=== PATIENT | male | born 1950 | race Caucasian/White ===

== ENCOUNTER 2016-09-25 12:27 | Inpatient (IN) | payer OTHER ==
[~2016-09-25] VITALS: Ht 177.8 cm; Wt 74.7 kg
[~2016-09-25 12:27] MED LIST: FINA5TAB PO; TAMS-14 PO
[2016-09-25] MEDS ORDERED: ASPIRIN 325 MG TAB PO STA (14:09)
[2016-09-25 14:34] LABS: BASOPHILS % 0.3 % (0.0-2.0); EOSINOPHILS # 0.1 10^3/ul (0.0-0.5); EOSINOPHILS % 0.7 % (0.0-7.0); HEMATOCRIT 49.6 % (42.0-52.0); HEMOGLOBIN 16.3 g/dl (14.0-18.0); LYMPHOCYTES # 2.4 10^3/ul (0.8-2.9); LYMPHOCYTES % 19.9 % (15.0-51.0); MEAN CORPUSCULAR HGB CONC 32.9 g/dl (32.0-37.0); MEAN CORPUSCULAR VOLUME 94.4 fl (82.0-101.0); MEAN PLATELET VOLUME 8.6 fl (7.4-10.4); MONOCYTE # 0.8 10^3/ul (0.3-0.9); MONOCYTES % 7.1 % (0.0-11.0); NEUTROPHIL # 8.6 10^3/ul (1.6-7.5); PLATELET COUNT 184 10^3/UL (140-440); RED BLOOD COUNT 5.26 10^6/ul (4.70-6.10); RED CELL DISTRIBUTION WIDTH 13.7 % (11.5-14.5); UNCORRECTED WBC 11.9 10^3/ul (4.8-10.8); WHITE BLOOD COUNT 11.9 10^3/ul (4.8-10.8)
[2016-09-25 14:42] LABS: POTASSIUM 4.5 mmol/L (3.5-5.1)
[2016-09-25 14:44] LABS: INR 0.92; PARTIAL THROMBOPLASTIN TIME 35.7 Sec (25.0-35.0); PROTIME 12.4 Sec (12.2-14.2)
[2016-09-25 14:45] LABS: CREATININE 0.97 mg/dl (0.61-1.24)
[2016-09-25 14:46] LABS: CALCIUM 10.5 mg/dl (8.4-10.2)
[2016-09-25 14:59] LABS: CONDITION 1
[2016-09-25 15:03] LABS: TROPONIN-I 12.5 ng/ml (0.00-0.12)
[2016-09-25] MEDS ORDERED: HEPARIN 1000 UNITS/ML 10 ML INJ IV STA (15:16)
[2016-09-25] MEDS ORDERED: HEPARIN 25000 UNITS/250 ML 250 ML IV STA (15:16)
[2016-09-25] MEDS ORDERED: SOD CHLORIDE 0.9% 1,000 ML IV ONE (15:30)
--- NOTE | 2016-09-25 15:58 | RADRPT ---
PROCEDURE: XR Chest. CLINICAL INDICATION: Chest pain. TECHNIQUE: Single frontal view of the chest was obtained. COMPARISON: 04/30/2015. FINDINGS: Cardiomediastinal silhouette appears normal Pulmonary vasculature appears normal. Lung landeros appear clear. No nodules identified. No pneumothorax. Costophrenic angles are well defined. The osseous elements appear intact. IMPRESSION: 1. No evidence for active cardiopulmonary disease. RPTAT: AACC Saeed Shane Physician Date Time Electronically viewed and signed by Saeed Shane Physician on 09/25/2016 15:58 /
[2016-09-25] MEDS ORDERED: ETOMIDATE 20 MG INJ IV ONE (16:00)
[2016-09-25] MEDS ORDERED: ONDANSETRON 4 MG INJ IV PRN ×2 (16:30→17:30)
[2016-09-25] MEDS ORDERED: ACETAMINOPHEN 325 MG TAB PO PRN ×2 (16:30→17:30)
[2016-09-25] MEDS ORDERED: NITROGLYCERIN (SL) 0.4 MG TAB SL PRN (17:30)
[2016-09-25] MEDS ORDERED: DOCUSATE SODIUM 100 MG CAP PO PRN (17:30)
[2016-09-25] MEDS ORDERED: ALBUTEROL/IPRATROPIUM (NEB) 3 ML AMP HHN PRN (17:30)
[2016-09-25] MEDS ORDERED: NA PHOSPHATE/BIPHOS 133 ML ENEMA PR PRN (17:30)
[2016-09-25] MEDS ORDERED: NACL 0.9% 3 ML SYG IV SCH (17:30)
[2016-09-25] MEDS ORDERED: hydrALAzine 20 MG INJ IV PRN (17:30)
[2016-09-25] MEDS ORDERED: MAGNESIUM HYDROXIDE 30ML CUP PO PRN (17:30)
[2016-09-25] MEDS: SOD CHLORIDE 0.45% 1,000 ML IV SCH (17:58)
[2016-09-25 17:59] VITALS: PULSE 80
[2016-09-25 18:39] VITALS: Ht 177.8 cm; Wt 74.7 kg
[2016-09-25] MEDS ORDERED: CLOPIDOGREL 75 MG TAB PO ONE (19:00)
[2016-09-25 19:10] LABS: INR 1.05; PROTIME 13.7 Sec (12.2-14.2); PT RATIO 1.1
--- NOTE | 2016-09-25 19:13 | CONS ---
DATE OF ADMISSION: 09/25/2016 DATE OF CONSULTATION: 09/25/2016 TYPE OF CONSULTATION: Cardiology. REFERRING PHYSICIAN: Dr. Beckham REASON FOR CONSULTATION: Abnormal troponin and myocardial infarction. CHIEF COMPLAINT: Chest pain. HISTORY OF PRESENT ILLNESS: Thank you for this referral on this patient who is a good historian. T his is a 66-year-old gentleman with a history of dyslipidemia apparently has not been taking his Lip itor regularly, history of BPH who came to emergency room with complaint of chest pain. The patient stated that last night around 2:00 in the morning he was awake, he had severe chest pain anteriorly , pressure-like going down to his jaws bilaterally. It lasted at least 15 to 20 minutes. The pain resolved spontaneously. He has had on and off chest pain since then. Because of his family issues and personal issues, he did not come to the hospital until this afternoon. Initial troponin was le vated at 12. We were kindly asked to evaluate and treat. At this time, patient is completely chest pain-free. PAST MEDICAL HISTORY: History of dyslipidemia, history of BPH. MEDICATIONS AT HOME: Proscar. SOCIAL HISTORY: The patient uses "miracle marijuana." FAMILY HISTORY: No reported coronary artery disease. ALLERGIES: NO REPORTED ALLERGIES. REVIEW OF SYSTEMS: He denied all other except for above-mentioned. PHYSICAL EXAMINATION: VITAL SIGNS: Temperature 98.2, heart rate of 80, blood pressure 114/90, respiration rate of 18, sat urating 99% on room air. HEENT: Normocephalic, atraumatic, no acute distress. Pupils equal and round. CARDIOVASCULAR: Regular rate and rhythm, systolic murmur. PULMONARY: With no wheezes or rales. GASTROINTESTINAL: Soft, nontender. EXTREMITIES: With no significant lower extremity edema. NEUROLOGIC: Awake, alert, oriented x3. PSYCHIATRIC: Appears to be calm and pleasant. DIAGNOSTIC DATA: EKG was personally reviewed, showed normal sinus rhythm, inferior infarct, age und etermined. LABORATORY: Troponin is 12.5. Sodium 140, potassium 4.5, BUN of 24, creatinine 0.97, glucose of 84 . WBC of 11.9, hemoglobin , platelet 184. Chest x-ray read by radiologist shows no acute cardiopulmonary disease. ASSESSMENT AND PLAN: 1. [id number] myocardial infarction. 2. Abnormal EKG secondary to above. 3. Dyslipidemia. 4. Benign prostatic hypertrophy. RECOMMENDATIONS: Will start the patient on aspirin, Plavix, heparin drip. Currently, chest pain-fr ee. Will obtain serial cardiac enzymes, lipid panel, start him on statin, start him on beta aria . Plan for left heart catheterization, coronary angioplasty with possible percutaneous intervention tomorrow. Risks and alternatives were discussed with the patient in detail. This included infecti on, vascular complication, bleeding complication, [place], stroke, arrhythmia, , renal failure, etc. , discussed with him. He consented to the procedure. Dictated By: SHELLY RUIZ/DORENE Conf#: [id number] DID#: [id number]
[2016-09-25 19:20] LABS: PARTIAL THROMBOPLASTIN TIME 80.7 Sec (25.0-35.0)
[2016-09-25] MEDS ORDERED: HEPARIN 1000 UNITS/ML 10 ML INJ IV PRN (19:30)
[2016-09-25 19:33] LABS: TROPONIN-I 13.9 ng/ml (0.00-0.12)
[2016-09-25] MEDS ORDERED: HEPARIN 25000 UNITS/D5W 250 ML IV SCH (20:00)
[2016-09-25] MEDS: HEPARIN 25000 UNITS/D5W 250 ML IV SCH (20:13)
[2016-09-25 20:30] VITALS: PULSE 76
--- NOTE | 2016-09-25 20:32 | HP ---
DATE OF ADMISSION: 09/25/2016 CHIEF COMPLAINT: Chest pain, shortness of breath. HISTORY OF PRESENT ILLNESS: A 66-year-old male, with no significant past medical history other than recent stress the last 2 weeks, who has had substernal chest pain that began around 1 a.m. today. It radiated to the jaw and eventually to the left arm. He also had some shortness of breath symptom s, as well, but denied any headaches, dizziness or loss of consciousness. No upper, no lower jaw bl eeding. No fevers or chills. No diarrhea. No constipation. No abdominal pain. No nausea. No vo miting. No sweating. Denies any prior history of any stroke or heart attack. He tried to take asp irin at home, which did not relieve his symptoms, so he became concerned and came to the ER. When waqra noyola came in today, he was found with elevated troponin of 4.4, signs of non-ST elevation MT; patient w as given heparin in the ER and admitted now to the telemetry floor. PAST MEDICAL HISTORY: As stated above. ALLERGIES: NO KNOWN DRUG ALLERGIES. HOME MEDICATIONS: Proscar 5 mg daily. PAST SURGICAL HISTORY: He has had 2 inguinal hernia repairs. SOCIAL HISTORY: Patient smokes weed occasionally; smokes 3 to 4 cigars every year. No cigarette sm oking. Occasional alcohol use. FAMILY HISTORY: Mother had high cholesterol. Father had high cholesterol. PHYSICAL EXAMINATION VITAL SIGNS: Today: T-max 98.2, pulse 78, respirations 18, blood pressure ____, sating 99% room ai r. GENERAL: The patient is lying in bed, answering questions appropriately, slightly anxious, but othe rwise, in no acute distress, alert. HEENT: Pupils equal, round, react to light. Extraocular muscles intact. NECK: Supple; no thyromegaly. LUNGS: Clear to auscultation bilaterally. CARDIOVASCULAR: S1, S2 heard. No rubs or gallops. ABDOMEN: Soft, nontender, nondistended. Normal bowel sounds. No rebound or guarding. MUSCULOSKELETAL: No lower extremity edema bilaterally. NEUROLOGIC: No focal deficits. LABORATORIES: WBC 11.97, the rest of the CBC is normal. Sodium 140, potassium 4.5, chloride 98, CO 2 30, BUN 24, creatinine 0.9, glucose 84. Troponin is 12.5. BNP is 1,330. Coags are normal. CHEST X-RAY: No evidence of any active cardiopulmonary disease. ASSESSMENT AND PLAN A 66-year-old male with chest pain and shortness of breath, signs of non-ST elevation myocardial inf arction and leukocytosis: 1. Chest pain. Again, patient does is having a non-ST elevation myocardial infarction as the sourc e of his chest pain. Admit him to telemetry floor. Get cardiology consultation. Patient most like ly will get left heart catheterization tomorrow. In the meantime, morphine, oxygen, nitroglycerin a nd oxygen. Consider JOSE inhibitor, beta aria. He is going to get Plavix, as well. Check a TSH, A1c, lipid panel. Trend his troponins, as well. Consider IV fluids. Continue high-dose Lipitor. 2. Possible prostate issues. Continue Proscar. 3. Gastrointestinal prophylaxis, Pepcid. 4. Deep venous thrombosis prophylaxis. He is going to be on a heparin drip. Dictated By: AMRIK GIBBONS Conf#: [id number] DID#: [id number]
[2016-09-25] MEDS: FAMOTIDINE 20 MG INJ IV SCH (20:36)
[2016-09-25] MEDS ORDERED: ENOXAPARIN 100 MG/ML SYG SC SCH (21:00)
[2016-09-25] MEDS: ATORVASTATIN 80 MG TAB PO SCH (21:31)
[2016-09-25] MEDS: METOPROLOL 25 MG TAB PO SCH (21:31)
[2016-09-25 23:28] LABS: ADD UMIC NO; URINE BILIRUBIN (Dip) NEGATIVE (NEGATIVE); URINE BLOOD (Dip) NEGATIVE (NEGATIVE); URINE COLOR LT. YELLOW (YELLOW); URINE GLUCOSE (Dip) NEGATIVE (NEGATIVE); URINE KETONES (Dip) TRACE (NEGATIVE); URINE LEUKOCYTE ESTERASE (Dip) NEGATIVE (NEGATIVE); URINE NITRITE (Dip) NEGATIVE (NEGATIVE); URINE TOTAL PROTEIN (Dip) NEGATIVE (NEGATIVE); URINE UROBILINOGEN (Dip) 0.2 E.U./dL (0.1-1.0)
[2016-09-25 23:41] LABS: TROPONIN-I 10.7 ng/ml (0.00-0.12)
[2016-09-26] VITALS (29 sets, daily range): BP systolic 95–143; BP diastolic 62–97; PULSE 54–77; RESP 9–20
--- NOTE | 2016-09-26 00:21 | ERA ---
ER Documentation Chief Complaint Date/Time DATE: 09/26/16 TIME: 00:17 Chief Complaint STRONG PRESSURE LIKE PAIN @ LEFT CHEST AREA RADIATES TO ARMS AND JAW HPI This 66-year-old male presented with mild central chest pain described as a pressure that does not radiate. Pain is subsided significantly when he first developed last night. He had some shortness of breath accompanying at the time. Nothing makes the pain better or worse. He denies nausea vomiting. States it is otherwise healthy denies medical problems. ROS All systems reviewed and are negative except as per history of present illness. Medications Home Meds Reported Medications Finasteride* (Proscar*) 5 Mg Tablet, 5 MG PO DAILY, TAB 04/30/15 Discontinued Reported Medications Tamsulosin Hcl* (Flomax*) 0.4 Mg Cap.er.24h, 0.4 MG PO DAILY, CAP 04/30/15 Allergies Allergies: Coded Allergies: No Known Allergy (Unverified , 04/30/15) PMhx/Soc History of Surgery: Yes (Hernia repair) Anesthesia Reaction: No Hx Neurological Disorder: No Hx Respiratory Disorders: No Hx Cardiac Disorders: No Hx Psychiatric Problems: Yes (Depression) Hx Miscellaneous Medical Probl: No Hx Alcohol Use: Yes (4-5 glasses of wine a week) Hx Substance Use: No Hx Tobacco Use: No Smoking Status: Never smoker Physical Exam Vitals Vital Signs Date Time Temp Pulse Resp B/P Pulse Ox O2 Delivery O2 Flow Rate FiO2 09/25/16 14:33 78 18 114/96 99 Room Air 09/25/16 12:38 98.2 82 19 125/87 97 Physical Exam Const: [] No distress Head: Atraumatic Eyes: Normal Conjunctiva ENT: Normal External Ears, Nose and Mouth. Neck: Full range of motion..~ No meningismus. Resp: Clear to auscultation bilaterally Cardio: Regular rate and rhythm, no murmurs Abd: Soft, non tender, non distended. Normal bowel sounds Skin: No petechiae or rashes Back: No midline or flank tenderness Ext: No cyanosis, or edema Neur: Awake and alert and oriented 3 Psych: Normal Mood and Affect Result Diagram: 09/25/16 1420 09/25/16 1420 Results 24 hrs Laboratory Tests Test 09/25/16 14:20 Activated Partial Thromboplast Time 35.7Sec Anion Gap 17 B-Type Natriuretic Peptide 1330PG/ML Basophils # 0.010^3/ul Basophils % 0.3% Blood Urea Nitrogen 24mg/dl Calcium Level 10.5mg/dl Carbon Dioxide Level 30mmol/L Chloride Level 98mmol/L Creatinine 0.97mg/dl Eosinophils # 0.110^3/ul Eosinophils % 0.7% Glucose Level 84mg/dl Hematocrit 49.6% Hemoglobin 16.3g/dl INR International Normalized Ratio 0.92 Lymphocytes # 2.410^3/ul Lymphocytes % 19.9% Mean Corpuscular Hemoglobin 31.0pg Mean Corpuscular Hemoglobin Concent 32.9g/dl Mean Corpuscular Volume 94.4fl Mean Platelet Volume 8.6fl Monocytes # 0.810^3/ul Monocytes % 7.1% Neutrophils # 8.610^3/ul Neutrophils % 72.0% Nucleated Red Blood Cells # 0.010^3/ul Nucleated Red Blood Cells % 0.0/100WBC Platelet Count 38072^3/UL Potassium Level 4.5mmol/L Prothrombin Time 12.4Sec Prothrombin Time Ratio 1.0 Red Blood Count 5.2610^6/ul Red Cell Distribution Width 13.7% Sodium Level 140mmol/L Troponin I 12.500ng/ml White Blood Count 11.910^3/ul Current Medications Medications (Trade) Dose Ordered Sig/Mohsen Route PRN Reason Start Time Stop Time Status Last Admin Dose Admin Aspirin (Aspirin) 325 mg ONCE STAT PO 09/25/16 14:09 09/25/16 14:14 DC 09/25/16 14:28 Heparin Sodium (Porcine) 5000 unit 5,000 unit ONCE STAT IV 09/25/16 15:16 09/25/16 15:18 DC 09/25/16 15:44 Heparin Sodium (Porcine) 250 ml @ 0 mls/hr ONCE STAT IV 09/25/16 15:16 09/25/16 15:18 DC 09/25/16 15:45 Sodium Chloride (NS) 1,000 ml @ 1,000 mls/hr Q1H ONCE IV 09/25/16 15:30 09/25/16 16:29 DC 09/25/16 15:39 Etomidate (Amidate) 20 mg ONCE ONCE IV 09/25/16 16:00 09/25/16 16:00 DC Procedures/MDM 66 male with NSTEMI likely began last night. He has minimal symptoms currently. He was given aspirin and then put on heparin when his troponin returned elevated at 12.4. Is given a 5000 unit bolus and placed on a drip as well. Patient states that he feels well explained to him that he likely suffered a heart attack. He has no signs of infection. Is definitely going to be admitted to telemetry for further workup and management. Spoke with Dr. Beckham who will be admitting the patient. EKG interpretation: Normal sinus rhythm rate of 81, normal axis, no ST or T- wave changes concerning for acute ischemia traffic monitor specialist interpretation: Normal sinus rhythm without arrhythmia Chest x-ray interpretation: I see no acute process, no wide-based and were pneumothorax no pulmonary edema, no fractures Departure Diagnosis: Primary Impression: Chest pain Additional Impression: Non-STEMI (non-ST elevated myocardial infarction) Condition: Serious ONELNATHEN Sep 26, 2016 00:21
[2016-09-26] MEDS: SOD CHLORIDE 0.45% 1,000 ML IV SCH (06:39)
[2016-09-26 07:16] LABS: INR 0.97; PROTIME 12.9 Sec (12.2-14.2)
[2016-09-26 07:38] LABS: ALBUMIN 3.6 g/dl (3.3-4.9)
[2016-09-26 07:39] LABS: POTASSIUM 4.1 mmol/L (3.5-5.1)
[2016-09-26 07:41] LABS: BILIRUBIN,INDIRECT 0.5 mg/dl (0-1.1); BILIRUBIN,TOTAL 0.5 mg/dl (0.2-1.3); CREATININE 0.91 mg/dl (0.61-1.24)
[2016-09-26 07:42] LABS: ALBUMIN/GLOBULIN RATIO 1.28; CALCIUM 8.9 mg/dl (8.4-10.2); TOTAL PROTEIN 6.4 g/dl (6.1-8.1)
[2016-09-26 07:53] LABS: CHOL/HDL RATIO 2.6 RATIO
[2016-09-26] MEDS: FINASTERIDE 5 MG TAB PO SCH (08:12)
[2016-09-26] MEDS: FAMOTIDINE 20 MG INJ IV SCH (08:12)
[2016-09-26] MEDS: METOPROLOL 25 MG TAB PO SCH ×2 (08:12→20:51)
[2016-09-26] MEDS: morphine 2 MG INJ IV PRN ×3 (08:13→23:02)
[2016-09-26 08:19] LABS: THYROID STIMULATING HORMONE 3.4 MIU/L (0.465-4.680)
[2016-09-26 08:58] LABS: BASOPHILS % 0.6 % (0.0-2.0); EOSINOPHILS # 0.1 10^3/ul (0.0-0.5); EOSINOPHILS % 1.5 % (0.0-7.0); HEMATOCRIT 43.3 % (42.0-52.0); HEMOGLOBIN 14.5 g/dl (14.0-18.0); LYMPHOCYTES # 2.6 10^3/ul (0.8-2.9); MEAN CORPUSCULAR HEMOGLOBIN 31.4 pg (29.0-33.0); MEAN CORPUSCULAR HGB CONC 33.5 g/dl (32.0-37.0); MEAN CORPUSCULAR VOLUME 93.8 fl (82.0-101.0); MEAN PLATELET VOLUME 8.8 fl (7.4-10.4); MONOCYTE # 0.6 10^3/ul (0.3-0.9); MONOCYTES % 8.8 % (0.0-11.0); NEUTROPHIL # 3.6 10^3/ul (1.6-7.5); NEUTROPHILS % 52.1 % (39.0-77.0); PLATELET COUNT 154 10^3/UL (140-440); RED BLOOD COUNT 4.62 10^6/ul (4.70-6.10); RED CELL DISTRIBUTION WIDTH 13.5 % (11.5-14.5); UNCORRECTED WBC 6.9 10^3/ul (4.8-10.8); WHITE BLOOD COUNT 6.9 10^3/ul (4.8-10.8)
[2016-09-26 08:59] LABS: MAGNESIUM 1.9 mg/dl (1.7-2.5); PHOSPHORUS 3.6 mg/dl (2.5-4.9)
[2016-09-26] MEDS ORDERED: ASPIRIN (EC) 325 MG TAB PO SCH ×2 (09:00)
[2016-09-26 09:10] LABS: CONDITION 1
[2016-09-26 09:46] LABS: CK-MB 36.1 ng/ml (0.0-2.4); TROPONIN-I 11.1 ng/ml (0.00-0.12)
[2016-09-26] MEDS: HEPARIN 25000 UNITS/D5W 250 ML IV SCH (09:53)
[2016-09-26] MEDS: HYDROCODONE/APAP (5/325) TAB PO PRN ×2 (10:41→20:51)
[2016-09-26] MEDS ORDERED: HEPARIN 1000 UNITS/ML 10 ML INJ ONE (11:30)
[2016-09-26] MEDS ORDERED: VERAPAMIL 5 MG INJ ONE (11:30)
[2016-09-26] MEDS ORDERED: FENTAnyl 50 MCG/ML VIAL ONE (11:30)
[2016-09-26] MEDS ORDERED: IODIXANOL LOCM 100 ML BTL ONE (11:30)
[2016-09-26] MEDS ORDERED: SOD CHLORIDE 0.9% 500 ML ONE (11:30)
[2016-09-26] MEDS ORDERED: IODIXANOL LOCM 50 ML BTL ONE (11:30)
[2016-09-26] MEDS ORDERED: NITROGLYCERIN (IC) 100 MCG/ML INJ ONE (11:30)
[2016-09-26] MEDS ORDERED: MIDAZOLAM 1 MG/ML 2 ML INJ ONE (11:30)
--- NOTE | 2016-09-26 12:00 | RADRPT ---
Echocardiogram Report Patient Name: ДМИТРИЙ RODRIGUEZ Gender: Male Date: 1950 Study Date: 26-Sep-2016 Coding Auditor: LIS Location: I Height(Cm): 178 Weight(Kg): 74 BSA: 1.92 Ref. Physician: SHELLY CAMERON Quality: Adequate Procedures: Transthoracic echocardiogram with complete 2D, M-Mode, and Doppler examination. Indications: NSTEMI. 2D/M Mode Doppler Measurement Value Normal Ranges Measurement Value Normal Ranges AoR Diam MM 3.3 cm AV Peak Deepak 1.1 m/sec ACS MM 1.8 cm AV Peak PG 4.6 mmHg LVIDd 2D 4.0 3.5 - 5.6 cm LVOT Peak Deepak 0.8 m/sec LVIDs 2D 2.5 2.1 - 4.1 cm LVOT Peak PG 2.9 mmHg LVPWd 2D 1.0 0.6 - 1.1 cm MV E Peak Deepak 0.6 m/sec IVSd 2D 1.1 0.6 - 1.1 cm MV A Peak Deepak 0.8 m/sec EDV 2D 68.5 cm3 MV E/A 0.8 ESV 2D 16.4 cm3 MV Decel Time 154 msec LA Dimen 2D 3.3 2.3 - 4.0 cm MV Decel [place] 4 MV E/A 0.8 TR Peak Deepak 1.6 m/sec TR Peak PG 10.2 mmHg PV Peak Deepak 0.8 m/sec PV Peak PG 3.0 mmHg RVSP 13.2 mmHg Findings Left Ventricle: Normal left ventricular systolic function, possible basal inferior wall hypokinesis. Normal left ventricular cavity size. Normal left ventricular wall thickness. Ejection fraction is visually estimated at 60 %. Tissue Doppler/Mitral Doppler indices are within normal limits. Right Ventricle: Normal right ventricular size. Normal right ventricular systolic function. Left Atrium: The left atrium is normal in size. Right Atrium: The right atrium is normal in size. Atrial Septum: Normal atrial septum. Mitral Valve: Normal appearance of the mitral valve. Mild mitral valve regurgitation. Aortic Valve: Normal trileaflet aortic valve structure. No hemodynamically significant aortic stenosis by doppler. Trace aortic valve regurgitation. Tricuspid Valve: Normal appearance of the tricuspid valve. Estimated peak PA systolic pressure 13 mmHg. There is trace tricuspid regurgitation. Pulmonic Valve: Normal pulmonic valve appearance. No evidence of pulmonic regurgitation. Pericardium: Normal pericardium with no significant pericardial effusion. Aorta: Normal aortic root. IVC: Normal size and normal respiratory collapse consistent with normal right atrial pressure. Pulmonary Artery: Normal pulmonary artery size. Conclusions 1.Normal left ventricular systolic function, possible basal inferior wall hypokinesis. Normal left ventricular cavity size. Normal left ventricular wall thickness. Ejection fraction is visually estimated at 60 %. Tissue Doppler/Mitral Doppler indices are within normal limits. 2.Normal appearance of the mitral valve. Mild mitral valve regurgitation. 3.Normal trileaflet aortic valve structure. No hemodynamically significant aortic stenosis by doppler. Trace aortic valve regurgitation. 4.Normal appearance of the tricuspid valve. Estimated peak PA systolic pressure 13 mmHg. There is trace tricuspid regurgitation. Electronically Signed By: Shelly Cameron 26-Sep-2016 11:59:38 -0800 Patient Name: ДМИТРИЙ RODRIGUEZ Study Date: 26-Sep-2016 [id number]
[2016-09-26] MEDS ORDERED: BIVALIRUDIN 250MG /NS 50 ML 50 ML IVPB ONE (12:38)
--- NOTE | 2016-09-26 12:56 | PN ---
Date/Time of Note Date/Time of Note DATE: 09/26/16 TIME: 12:53 Assessment/Plan VTE Prophylaxis VTE Prophylaxis Intervention: heparin Lines/Catheters IV [facility]from [facility] Peripheral IV Urinary Cath still in place: No Assessment/Plan Chief Complaint/Hosp Course ASSESSMENT AND PLAN: 66-year-old male with chest pain and shortness of breath, signs of non-ST elevation myocardial infarction and leukocytosis. 1. Chest pain - sec to non-ST elevation myocardial infarction as the source of his chest pain. - for [facility] today, f/u results, f/u cardiology consultation rec's. - continue for now morphine, oxygen, nitroglycerin and oxygen. Consider JOSE inhibitor, beta aria. He is going to get Plavix, as well. - f/u TSH, A1c, lipid panel. Trend his troponins, as well. Consider IV fluids. - Continue high-dose Lipitor. 2. Possible prostate issues. Continue Proscar. 3. Gastrointestinal prophylaxis, Pepcid. 4. Deep venous thrombosis prophylaxis - heparin drip. Problems: Subjective 24 Hr Interval Summary Free Text/Dictation Pt taken to laboratory technologist presently, was on heparin drip overnight. Exam/Review of Systems Vital Signs Vitals Vital Signs Date Time Temp Pulse Resp B/P Pulse Ox O2 Delivery O2 Flow Rate FiO2 09/26/16 12:04 65 09/26/16 11:44 97.8 18 105/62 97 09/25/16 14:33 Room Air Intake and Output 09/25/16 09/25/16 09/26/16 15:00 23:00 07:00 Intake Total 1295 ml Output Total 800 ml Balance 495 ml Exam PE: - unable to be performed today b/c pt off floor at procedure Results Result Diagram: 09/26/16 0520 09/26/16 0520 Results 24 hrs Laboratory Tests Test 09/25/16 14:20 09/25/16 18:20 09/25/16 18:50 09/25/16 20:15 Activated Partial Thromboplast Time 35.7 H 80.7 *H Anion Gap 17 H B-Type Natriuretic Peptide 1330 H Basophils # 0.0 Basophils % 0.3 Blood Urea Nitrogen 24 H Calcium Level 10.5 H Carbon Dioxide Level 30 Chloride Level 98 Creatinine 0.97 Eosinophils # 0.1 Eosinophils % 0.7 Glucose Level 84 Hematocrit 49.6 Hemoglobin 16.3 INR International Normalized Ratio 0.92 1.05 Lymphocytes # 2.4 Lymphocytes % 19.9 Mean Corpuscular Hemoglobin 31.0 Mean Corpuscular Hemoglobin Concent 32.9 Mean Corpuscular Volume 94.4 Mean Platelet Volume 8.6 Monocytes # 0.8 Monocytes % 7.1 Neutrophils # 8.6 H Neutrophils % 72.0 Nucleated Red Blood Cells # 0.0 Nucleated Red Blood Cells % 0.0 Platelet Count 184 Potassium Level 4.5 Prothrombin Time 12.4 13.7 Prothrombin Time Ratio 1.0 1.1 Red Blood Count 5.26 Red Cell Distribution Width 13.7 Sodium Level 140 Troponin I 12.500 *H 13.900 *H White Blood Count 11.9 #H Creatine Kinase 568 H Creatine Kinase Index 11.4 Creatinine Kinase MB (Mass) 65.00 H Free Thyroxine 1.44 Urine Bilirubin NEGATIVE Urine Clarity CLEAR Urine Color LT. YELLOW Urine Glucose NEGATIVE Urine Hemoglobin NEGATIVE Urine Ketones TRACE Urine Leukocyte Esterase NEGATIVE Urine Nitrite NEGATIVE Urine Specific [place] 1.020 Urine Total Protein NEGATIVE Urine Urobilinogen 0.2 E.U./dL Urine pH 6.0 Test 09/25/16 23:00 09/26/16 02:30 09/26/16 05:00 09/26/16 05:20 Creatine Kinase 534 H Creatine Kinase Index 9.4 Creatinine Kinase MB (Mass) 50.00 H Troponin I 10.700 *H Activated Partial Thromboplast Time 61.7 H Magnesium Level 1.9 Phosphorus Level 3.6 Alanine Aminotransferase (ALT/SGPT) 36 Albumin 3.6 Albumin/Globulin Ratio 1.28 Alkaline Phosphatase 71 Anion Gap 13 Aspartate Amino Transf (AST/SGOT) 91 H Basophils # 0.0 Basophils % 0.6 Blood Urea Nitrogen 19 Calcium Level 8.9 Carbon Dioxide Level 25 Chloride Level 106 Cholesterol Level 182 Cholesterol/HDL Ratio 2.6 Creatinine 0.91 Direct Bilirubin 0.00 Eosinophils # 0.1 Eosinophils % 1.5 Globulin 2.80 Glucose Level 90 HDL Cholesterol 70 Hematocrit 43.3 Hemoglobin 14.5 Hemoglobin A1c 5.5 INR International Normalized Ratio 0.97 Indirect Bilirubin 0.5 LDL Cholesterol, Calculated 97 Lymphocytes # 2.6 Lymphocytes % 37.0 Mean Corpuscular Hemoglobin 31.4 Mean Corpuscular Hemoglobin Concent 33.5 Mean Corpuscular Volume 93.8 Mean Platelet Volume 8.8 Monocytes # 0.6 Monocytes % 8.8 Neutrophils # 3.6 Neutrophils % 52.1 Nucleated Red Blood Cells # 0.0 Nucleated Red Blood Cells % 0.0 Platelet Count 154 Potassium Level 4.1 Prothrombin Time 12.9 Prothrombin Time Ratio 1.0 Red Blood Count 4.62 L Red Cell Distribution Width 13.5 Sodium Level 140 Thyroid Stimulating Hormone (TSH) 3.400 Total Bilirubin 0.5 Total Protein 6.4 Triglycerides Level 75 White Blood Count 6.9 # Test 09/26/16 05:25 09/26/16 06:00 09/26/16 09:15 Free Thyroxine 1.27 Creatine Kinase 347 #H Creatine Kinase Index 10.4 Creatinine Kinase MB (Mass) 36.10 H Troponin I 11.100 *H Activated Partial Thromboplast Time 65.5 H Medications Medications Current Medications Ondansetron HCl (Zofran Inj) 4 mg Q6H PRN IV NAUSEA AND/OR VOMITING; Start at 17:30 Acetaminophen (Tylenol Tab) 650 mg Q6H PRN PO PAIN LEVEL 1-3 OR FEVER; Start at 17:30 Acetaminophen/ Hydrocodone Bitart ([place] (5/325)) 1 tab Q6H PRN PO MODERATE PAIN LEVEL 4-6 Last administered on 09/26/16 10:41; Admin Dose 1 TAB; Start at 17:30 Morphine Sulfate (morphine) 2 mg Q4H PRN IV SEVERE PAIN LEVEL 7-10 Last administered on 09/26/16 08:13; Admin Dose 2 MG; Start 09/25/16 at 17:30 Docusate Sodium (Colace) 100 mg Q12H PRN PO CONSTIPATION; Start 09/25/16 at 17: 30 Magnesium Hydroxide (Milk Of Mag) 30 ml DAILY PRN PO CONSTIPATION; Start at 17:30 Sodium Biphosphate/ Sodium Phosphate (Fleet Enema) 133 ml DAILY PRN DC CONSTIPATION; Start 09/25/16 at 17:30 Famotidine 20 mg 20 mg DAILY IV Last administered on 09/26/16 08:12; Admin Dose 20 MG; Start 09/25/16 at 17:30 Sodium Chloride (1/2 NS) 1,000 ml @ 75 mls/hr [id number] IV Last administered on 09/26/16 06:39; Admin Dose 75 MLS/HR; Start 09/25/16 at 17:15 Lorazepam (Ativan) 0.5 mg Q6H PRN IV ANXIETY; Start 09/25/16 at 17:30 Hydralazine HCl (Apresoline) 10 mg Q6H PRN IV ELEVATED BLOOD PRESSURE; Start at 17:30 Clonidine (Catapres) 0.1 mg Q6H PRN PO ELEVATED BLOOD PRESSURE; Start 09/25/16 at 17:30 Nitroglycerin (Nitroglycerin (Sl Tab) 0.4 Mg) 1 tab Q5M PRN SL ANGINA; Start at 17:30 Finasteride (Proscar) 5 mg DAILY PO Last administered on 09/26/16 08:12; Admin Dose 5 MG; Start 09/26/16 at 09:00 Aspirin (Ecotrin) 81 mg DAILY PO Last administered on 09/26/16 08:12; Admin Dose 81 MG; Start 09/26/16 at 09:00 Metoprolol Tartrate (Lopressor) 25 mg BID PO Last administered on 09/26/16 08: 12; Admin Dose 25 MG; Start 09/25/16 at 21:00 Atorvastatin Calcium 80 mg 80 mg HS PO Last administered on 09/25/16 21:31; Admin Dose 80 MG; Start 09/25/16 at 21:00 Heparin Sodium (Porcine) (Heparin 89322 Units/250 ml) 250 ml @ 9 mls/hr TITRATE IV Last administered on 09/26/16 09:53; Admin Dose 9 MLS/HR; Start 09/25/16 at 20:00 AMRIK HACKETT Sep 26, 2016 12:56
[2016-09-26] MEDS ORDERED: CLOPIDOGREL 300 MG TAB ONE (13:07)
[2016-09-26] MEDS: SOD CHLORIDE 0.9% 1,000 ML IV SCH ×2 (13:11→23:02)
--- NOTE | 2016-09-26 14:38 | SP ---
DATE OF PROCEDURE: 09/26/2016 NAME OF PROCEDURE: 1. Left heart catheterization. 2. Right and left coronary angiography. 2. Thrombectomy of the right coronary artery. 3. Successful PTCA stenting of the proximal and mid right coronary artery from subtotal lesion with a large amount of intraluminal thrombus, no significant residual stenosis using a 2.5 x 38 mm Promu s drug-eluting stent. 4. Angiogram and closure of right femoral artery using a Perclose device. SURGEON: Shelly Cameron MD INDICATIONS: A 66-year-old gentleman who presented with non-ST elevation myocardial infarction. FINDINGS: 1. Left main coronary artery appeared to be normal. 2. Left anterior descending is a long vessel, it is a moderate-sized. It has approximately about 4 0% stenosis mid level area of about 95% stenosis at the site of a large diagonal followed by another tandem lesion of about 80% to 90% stenosis. 3. Left circumflex artery had less than 20% stenosis. It is nondominant. 4. Right coronary artery is a small but dominant vessel. At the proximal to mid level has a subtot al lesion with evidence of intraluminal thrombus. After successful PTCA stent and thrombectomy of t his lesion, there was no significant residual stenosis left. 5. LV systolic pressure is 121, LVEDP is 7, aortic pressure with pullback is 118/66. DESCRIPTION OF PROCEDURE: Written informed consent was obtained. The risks and benefits were discu ssed with the patient in detail. The patient brought to the director of cath lab and placed in supine position. Right and left groins were prepped and draped in sterile fashion. Right groin area was anesthetiz ed with lidocaine was injected 6-Welsh sheath was placed in right femoral artery. Right femoral an giogram was performed. JL4 catheter was advanced and engaged the left main coronary artery. Angiog emil was obtained. JR4 catheter was engaged in left . Hemodynamics recorded while pullback aor tic pressure was measured. Then, was advanced and engaged in the right coronary artery and angiogra m was obtained. At this time, we performed a PCI of right coronary artery which appeared to be the culprit lesion. JR4 guiding catheter was advanced and engaged in the right coronary artery. BMW wi re used across the lesion. A Pronto was used and thrombectomy was done. Intracoronary verapamil wa s given and angiogram was obtained. Then, I used a vessel with 2-0 x 50 mm balloon. Then, I used a 2.5 by 30 mm drug-eluting stent which was placed across the lesion and deployed it at 16 atmosphere s. Angiogram was obtained. Finally, a 3-0 noncompliant balloon was used and postdilated the stent up to 18 atmospheres. Final angiogram was obtained with ISABELL 3 flow, no evidence of dissection, no significant residual stenosis. Catheter and Glidewire were removed. Right femoral sheath was remov ed. Perclose was successfully deployed. IMMEDIATE COMPLICATIONS: None. CONCLUSION: Successful PTCA stent thrombectomy of the right coronary artery from subtotal lesion, n o significant residual stenosis. RECOMMENDATIONS: Aggressive medical therapy. Aspirin indefinitely. Plavix for a minimum of the ne xt 1 year. ICU care overnight. Will plan for a complicated PCI of the LAD in 2 days if he remains hemodynamically stable and the creatinine remains stable. Dictated By: SHELLY RUIZ/DORENE Conf#: [id number] DID#: [id number] CC: AMRIK HACKETT;*EndCC*
[2016-09-26] MEDS: LORAZEPAM 2 MG INJ IV PRN (14:52)
--- NOTE | 2016-09-26 18:30 | PN ---
DATE: 09/26/2016 CARDIOLOGY FOLLOWUP SUBJECTIVE: Discussed with the staff. The patient with no chest pain or pressure overnight. Compl ains of bilateral lower back pain, "kidney pain." No pain with urination, though. The patient unde rwent successful PCI of his right coronary artery. He also has significant LAD disease as well. No groin pain. MEDICATIONS: Reviewed. PHYSICAL EXAMINATION: VITAL SIGNS: Temperature 97.8, heart rate of 59, blood pressure 105/52, respiration rate of 18, sat urating 97%. HEENT: Normocephalic, atraumatic. No acute distress. Pupils are equal. CARDIOVASCULAR: Regular rate and rhythm, systolic murmur. PULMONARY: With no wheezes, no rhonchi. GASTROINTESTINAL: Soft, nontender. No rebound or guarding. EXTREMITIES: Right femoral with no bleeding or hematoma. NEUROLOGIC: Awake and alert. PSYCHIATRIC: Appeared to be anxious, otherwise stable. LABORATORY: WBC of 6.9, hemoglobin 14.5, platelets of 154. Sodium 140, potassium 4.1, BUN of 19, c reatinine 0.91, glucose of 90. Troponin has peaked at 13.9 and came down to ____. CK peaked at 568 and has been decreased since then. MB fraction peaked at 65. ASSESSMENT AND PLAN: 1. Acute non-ST elevation myocardial infarction. 2. Status post percutaneous coronary intervention of right coronary artery with multivessel disease ____ left anterior descending artery disease as well. 3. Dyslipidemia. 4. History of benign prostatic hypertrophy. RECOMMENDATIONS: Echocardiogram was done which was personally reviewed, which showed normal LV syst olic function. We will continue with the ICU care overnight and Plavix and aspirin will be continue d. Statin will be continued. Beta aria will be continued. Pain management of back pain as per internal medicine. We will plan for planned PCI of the LAD in 2 days if no complications and renal function remains stable. Continue with the ICU care. More than 35 minutes critical care time was spent in management of this patient excluding procedures . Dictated By: SHELLY RUIZ/DORENE Conf#: [id number] DID#: [id number] CC: AMRIK HACKETT;*EndCC*
[2016-09-26] MEDS: ATORVASTATIN 80 MG TAB PO SCH (20:51)
--- NOTE | 2016-09-26 22:12 | RADRPT ---
PROCEDURE: CT Abdomen and Pelvis without contrast. CLINICAL INDICATION: Abdominal and pelvic pain. TECHNIQUE: CT scan of the abdomen and pelvis without contrast was performed. Coronal and sagittal reformatted images were obtained from the axial source images. Images were reviewed on a high-resolu [employer] PACS workstation. Total exam DLP is 534.55 mGy-cm. CTDIvol is 8.86 mGy. One or more of the fo llowin dose reduction techniques were used: Automated exposure control, adjustment of the mA and/or kV according to patient size, use of iterative reconstruction technique. COMPARISON: CT scan of the abdomen and pelvis dated 04/15/2013. FINDINGS: There is mild atelectasis at the lung bases posteriorly. The lung bases are otherwise normal. The heart size is normal. There is no pleural effusion or pericardial effusion. There is coronary davida ry calcification. There is a probable stent in the proximal right coronary artery. The liver is normal in size and attenuation. There is no focal hepatic lesion. Gallstones, sludge, or contrast is present in the gallbladder. There is no evidence of cholecystiti s. The bile ducts are normal. The spleen is normal in size. There is no focal splenic lesion. Both adrenals are normal with no enlargement or mass. The pancreas is unremarkable with no mass or evidence of pancreatitis. There are benign bilateral renal cysts, unchanged. There is no solid renal mass, hydronephrosis, or calculus. The abdominal aorta is not dilated. There is calcification in the aorta consistent with atheroscler osis. There is no retroperitoneal lymphadenopathy or mass. There is no pelvic lymphadenopathy or mass. There is contrast in the urinary bladder from a prior study. The prostate is enlarged. The periappendiceal region is unremarkable with no evidence of appendicitis. There is diverticulosis of the colon without evidence of diverticulitis. The bowel and mesentery ar e otherwise normal. There is no free fluid or free gas. There are degenerative changes of the spine. There is no fracture. As seen previously, there is a predominately sclerotic lesion in the left iliac bone medially measuring 2.5 x 1.3 cm, unchanged. T here is no other lytic or blastic lesion. IMPRESSION: 1. Mild atelectasis at the lung bases posteriorly. 2. Coronary artery calcification. 3. Probable stent in the proximal right coronary artery. 4. Gallstones, sludge, or contrast present in the gallbladder. No evidence of cholecystitis. 5. Benign bilateral renal cysts. 6. Atherosclerosis. 7. Contrast in the urinary bladder from a prior study. 8. Enlarged prostate. 9. Diverticulosis of the colon without evidence of diverticulitis. 10. Degenerative changes of the spine. 11. Unchanged predominately sclerotic lesion in the left iliac bone medially, indicating this is be nign. 12. Otherwise unremarkable study. RPTAT: QQ .Mikel Broussard MD, MD Date Time Electronically viewed and signed by .Mikel Broussard MD, MD on 09/26/2016 22:11 .R/
[2016-09-26] MEDS ORDERED: SOD CHLORIDE 0.45% 1,000 ML IV SCH (23:30)
[2016-09-27] VITALS (24 sets, daily range): BP systolic 59–124; BP diastolic 26–96; PULSE 58–85; RESP 10–32
[2016-09-27] MEDS: SOD CHLORIDE 0.9% 1,000 ML IV SCH ×3 (05:07→21:21)
[2016-09-27 05:36] LABS: BASOPHILS % 0.8 % (0.0-2.0); EOSINOPHILS # 0.1 10^3/ul (0.0-0.5); EOSINOPHILS % 1.4 % (0.0-7.0); HEMATOCRIT 42.4 % (42.0-52.0); HEMOGLOBIN 14.2 g/dl (14.0-18.0); LYMPHOCYTES # 1.8 10^3/ul (0.8-2.9); LYMPHOCYTES % 36.6 % (15.0-51.0); MEAN CORPUSCULAR HEMOGLOBIN 31.6 pg (29.0-33.0); MEAN CORPUSCULAR HGB CONC 33.5 g/dl (32.0-37.0); MEAN CORPUSCULAR VOLUME 94.3 fl (82.0-101.0); MEAN PLATELET VOLUME 8.4 fl (7.4-10.4); MONOCYTE # 0.4 10^3/ul (0.3-0.9); MONOCYTES % 9.1 % (0.0-11.0); NEUTROPHIL # 2.6 10^3/ul (1.6-7.5); NEUTROPHILS % 52.1 % (39.0-77.0); PLATELET COUNT 157 10^3/UL (140-440); RED CELL DISTRIBUTION WIDTH 13.5 % (11.5-14.5); UNCORRECTED WBC 4.9 10^3/ul (4.8-10.8); WHITE BLOOD COUNT 4.9 10^3/ul (4.8-10.8)
[2016-09-27 05:40] LABS: ALBUMIN 3.4 g/dl (3.3-4.9)
[2016-09-27 05:43] LABS: ALBUMIN/GLOBULIN RATIO 1.25; BILIRUBIN,INDIRECT 0.8 mg/dl (0-1.1); BILIRUBIN,TOTAL 0.8 mg/dl (0.2-1.3); CREATININE 0.85 mg/dl (0.61-1.24); TOTAL PROTEIN 6.1 g/dl (6.1-8.1)
[2016-09-27 05:44] LABS: CALCIUM 8.7 mg/dl (8.4-10.2); MAGNESIUM 1.8 mg/dl (1.7-2.5)
[2016-09-27 05:50] LABS: CONDITION 1
[2016-09-27 06:19] LABS: CK-MB 9.62 ng/ml (0.0-2.4); TROPONIN-I 5.96 ng/ml (0.00-0.12)
[2016-09-27] MEDS: FINASTERIDE 5 MG TAB PO SCH (08:18)
[2016-09-27] MEDS: ASPIRIN (EC) 81 MG TAB PO SCH (08:18)
[2016-09-27] MEDS: FAMOTIDINE 20 MG INJ IV SCH (08:18)
[2016-09-27] MEDS: CLOPIDOGREL 75 MG TAB PO SCH (08:18)
[2016-09-27] MEDS: METOPROLOL 25 MG TAB PO SCH ×2 (08:18→21:20)
--- NOTE | 2016-09-27 09:44 | PN ---
Date/Time of Note Date/Time of Note DATE: 09/27/16 TIME: 09:16 Assessment/Plan VTE Prophylaxis VTE Prophylaxis Intervention: SCD's Lines/Catheters IV [facility] Urinary Cath still in place: No Assessment/Plan Assessment/Plan A 66-year-old male with chest pain and shortness of breath, signs of non-ST elevation myocardial infarction and leukocytosis: 1. NST elevation myocardial infarction s/p Left heart catheterization 09/26/15. with Thrombectomy of the right coronary artery / PTCA stenting of the proximal and mid right coronary artery Patient still has residual LAD disease and is planned for PCI of the LAD tomorrow if no complications Patient is optimized on statin / BB / ASA/ Plavix 2. BPH: On home Proscar. Gastrointestinal prophylaxis, Pepcid. Deep venous thrombosis prophylaxis: SCDs Subjective 24 Hr Interval Summary Free Text/Dictation Patient seen and examined. Exam/Review of Systems Vital Signs Vitals Vital Signs Date Time Temp Pulse Resp B/P Pulse Ox O2 Delivery O2 Flow Rate FiO2 09/27/16 08:00 74 09/27/16 06:00 13 102/76 97 09/27/16 04:00 98.6 09/26/16 14:00 Nasal Cannula 2.0 Intake and Output 09/26/16 09/26/16 09/27/16 15:00 23:00 07:00 Intake Total 325 ml 950 ml 800 ml Output Total 120 ml 900 ml 500 ml Balance 205 ml 50 ml 300 ml Exam Constitutional: alert, oriented Psych: nl mood/affect Head: atraumatic, normocephalic Eyes: PERRL ENMT: mucosa pink and moist Neck: non-tender, supple Respiratory: clear to auscultation, normal air movement Cardiovascular: nl pulses, regular rate and rhythm Gastrointestinal: bowel sounds, non-tender, soft Extremities: No edema Neurological: nl mental status, nl speech, nl strength Skin: No rash or lesions Results Result Diagram: 09/27/1643909/27/16439 Results 24 hrs Laboratory Tests Test 09/26/16 16:35 09/27/16 04:40 Activated Partial Thromboplast Time 54.0 H Alanine Aminotransferase (ALT/SGPT) 30 Albumin 3.4 Albumin/Globulin Ratio 1.25 Alkaline Phosphatase 53 Anion Gap 14 Aspartate Amino Transf (AST/SGOT) 49 H Basophils # 0.0 Basophils % 0.8 Blood Urea Nitrogen 14 Calcium Level 8.7 Carbon Dioxide Level 26 Chloride Level 104 Creatine Kinase 136 # Creatine Kinase Index 7.1 Creatinine 0.85 Creatinine Kinase MB (Mass) 9.62 H Direct Bilirubin 0.00 Eosinophils # 0.1 Eosinophils % 1.4 Globulin 2.70 Glucose Level 82 Hematocrit 42.4 Hemoglobin 14.2 Indirect Bilirubin 0.8 Lymphocytes # 1.8 Lymphocytes % 36.6 Magnesium Level 1.8 Mean Corpuscular Hemoglobin 31.6 Mean Corpuscular Hemoglobin Concent 33.5 Mean Corpuscular Volume 94.3 Mean Platelet Volume 8.4 Monocytes # 0.4 Monocytes % 9.1 Neutrophils # 2.6 Neutrophils % 52.1 Nucleated Red Blood Cells # 0.0 Nucleated Red Blood Cells % 0.0 Platelet Count 157 Potassium Level 4.0 Red Blood Count 4.50 L Red Cell Distribution Width 13.5 Sodium Level 140 Total Bilirubin 0.8 Total Protein 6.1 Troponin I 5.960 *H White Blood Count 4.9 # Medications Medications Current Medications Ondansetron HCl (Zofran Inj) 4 mg Q6H PRN IV NAUSEA AND/OR VOMITING; Start at 17:30 Acetaminophen (Tylenol Tab) 650 mg Q6H PRN PO PAIN LEVEL 1-3 OR FEVER; Start at 17:30 Acetaminophen/ Hydrocodone Bitart ([place] (5/325)) 1 tab Q6H PRN PO MODERATE PAIN LEVEL 4-6 Last administered on 09/26/16 20:51; Admin Dose 1 TAB; Start at 17:30 Morphine Sulfate (morphine) 2 mg Q4H PRN IV SEVERE PAIN LEVEL 7-10 Last administered on 09/26/16 23:02; Admin Dose 2 MG; Start 09/25/16 at 17:30 Docusate Sodium (Colace) 100 mg Q12H PRN PO CONSTIPATION; Start 09/25/16 at 17: 30 Magnesium Hydroxide (Milk Of Mag) 30 ml DAILY PRN PO CONSTIPATION; Start at 17:30 Sodium Biphosphate/ Sodium Phosphate (Fleet Enema) 133 ml DAILY PRN NC CONSTIPATION; Start 09/25/16 at 17:30 Famotidine (Pepcid Iv) 20 mg DAILY IV Last administered on 09/27/16 08:18; Admin Dose 20 MG; Start 09/25/16 at 17:30 Lorazepam (Ativan) 0.5 mg Q6H PRN IV ANXIETY Last administered on 09/26/16 14: 52; Admin Dose 0.5 MG; Start 09/25/16 at 17:30 Hydralazine HCl (Apresoline) 10 mg Q6H PRN IV ELEVATED BLOOD PRESSURE; Start at 17:30 Clonidine (Catapres) 0.1 mg Q6H PRN PO ELEVATED BLOOD PRESSURE; Start 09/25/16 at 17:30 Nitroglycerin (Nitroglycerin (Sl Tab) 0.4 Mg) 1 tab Q5M PRN SL ANGINA; Start at 17:30 Finasteride (Proscar) 5 mg DAILY PO Last administered on 09/27/16 08:18; Admin Dose 5 MG; Start 09/26/16 at 09:00 Metoprolol Tartrate (Lopressor) 25 mg BID PO Last administered on 09/27/16 08: 18; Admin Dose 25 MG; Start 09/25/16 at 21:00 Atorvastatin Calcium (Lipitor) 80 mg HS PO Last administered on 09/26/16 20:51 ; Admin Dose 80 MG; Start 09/25/16 at 21:00 Clopidogrel Bisulfate 75 mg 75 mg DAILY PO Last administered on 09/27/16 08:18 ; Admin Dose 75 MG; Start 09/27/16 at 09:00 Sodium Chloride (NS) 1,000 ml @ 100 mls/hr Q10H IV Last administered on 05:07; Admin Dose 100 MLS/HR; Start 09/26/16 at 23:30 Aspirin (Halfprin) 81 mg DAILY PO Last administered on 09/27/16 08:18; Admin Dose 81 MG; Start 09/27/16 at 09:00 Procedures Procedures PROCEDURE: CT Abdomen and Pelvis without contrast. CLINICAL INDICATION: Abdominal and pelvic pain. TECHNIQUE: CT scan of the abdomen and pelvis without contrast was performed. Coronal and sagittal reformatted images were obtained from the axial source images. Images were reviewed on a high-resolution PACS workstation. Total exam DLP is 534.55 mGy-cm. CTDIvol is 8.86 mGy. One or more of the following dose reduction techniques were used: Automated exposure control, adjustment of the mA and/or kV according to patient size, use of iterative reconstruction technique. COMPARISON: CT scan of the abdomen and pelvis dated 04/15/2013. FINDINGS: There is mild atelectasis at the lung bases posteriorly. The lung bases are otherwise normal. The heart size is normal. There is no pleural effusion or pericardial effusion. There is coronary artery calcification. There is a probable stent in the proximal right coronary artery. The liver is normal in size and attenuation. There is no focal hepatic lesion. Gallstones, sludge, or contrast is present in the gallbladder. There is no evidence of cholecystitis. The bile ducts are normal. The spleen is normal in size. There is no focal splenic lesion. Both adrenals are normal with no enlargement or mass. The pancreas is unremarkable with no mass or evidence of pancreatitis. There are benign bilateral renal cysts, unchanged. There is no solid renal mass , hydronephrosis, or calculus. The abdominal aorta is not dilated. There is calcification in the aorta consistent with atherosclerosis. There is no retroperitoneal lymphadenopathy or mass. There is no pelvic lymphadenopathy or mass. There is contrast in the urinary bladder from a prior study. The prostate is enlarged. The periappendiceal region is unremarkable with no evidence of appendicitis. There is diverticulosis of the colon without evidence of diverticulitis. The bowel and mesentery are otherwise normal. There is no free fluid or free gas. There are degenerative changes of the spine. There is no fracture. As seen previously, there is a predominately sclerotic lesion in the left iliac bone medially measuring 2.5 x 1.3 cm, unchanged. There is no other lytic or blastic lesion. IMPRESSION: 1. Mild atelectasis at the lung bases posteriorly. 2. Coronary artery calcification. 3. Probable stent in the proximal right coronary artery. 4. Gallstones, sludge, or contrast present in the gallbladder. No evidence of cholecystitis. 5. Benign bilateral renal cysts. 6. Atherosclerosis. 7. Contrast in the urinary bladder from a prior study. 8. Enlarged prostate. 9. Diverticulosis of the colon without evidence of diverticulitis. 10. Degenerative changes of the spine. 11. Unchanged predominately sclerotic lesion in the left iliac bone medially, indicating this is benign. 12. Otherwise unremarkable study. 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 Physician: SHELLY CAMERON Quality: Adequate Procedures: Transthoracic echocardiogram with complete 2D, M-Mode, and Doppler examination. Indications: NSTEMI. 2D/M Mode Doppler Measurement Value Normal Ranges Measurement Value Normal Ranges AoR Diam MM 3.3 cm AV Peak Deepak 1.1 m/sec ACS MM 1.8 cm AV Peak PG 4.6 mmHg LVIDd 2D 4.0 3.5 - 5.6 cm LVOT Peak Deepak 0.8 m/sec LVIDs 2D 2.5 2.1 - 4.1 cm LVOT Peak PG 2.9 mmHg LVPWd 2D 1.0 0.6 - 1.1 cm MV E Peak Deepak 0.6 m/sec IVSd 2D 1.1 0.6 - 1.1 cm MV A Peak Deepak 0.8 m/sec EDV 2D 68.5 cm3 MV E/A 0.8 ESV 2D 16.4 cm3 MV Decel Time 154 msec LA Dimen 2D 3.3 2.3 - 4.0 cm MV Decel Nash 4 MV E/A 0.8 TR Peak Deepak 1.6 m/sec TR Peak PG 10.2 mmHg PV Peak Deepak 0.8 m/sec PV Peak PG 3.0 mmHg RVSP 13.2 mmHg Findings Left Ventricle: Normal left ventricular systolic function, possible basal inferior wall hypokinesis. Normal left ventricular cavity size. Normal left ventricular wall thickness. Ejection fraction is visually estimated at 60 %. Tissue Doppler/Mitral Doppler indices are within normal limits. Right Ventricle: Normal right ventricular size. Normal right ventricular systolic function. Left Atrium: The left atrium is normal in size. Right Atrium: The right atrium is normal in size. Atrial Septum: Normal atrial septum. Mitral Valve: Normal appearance of the mitral valve. Mild mitral valve regurgitation. Aortic Valve: Normal trileaflet aortic valve structure. No hemodynamically significant aortic stenosis by doppler. Trace aortic valve regurgitation. Tricuspid Valve: Normal appearance of the tricuspid valve. Estimated peak PA systolic pressure 13 mmHg. There is trace tricuspid regurgitation. Pulmonic Valve: Normal pulmonic valve appearance. No evidence of pulmonic regurgitation. Pericardium: Normal pericardium with no significant pericardial effusion. Aorta: Normal aortic root. IVC: Normal size and normal respiratory collapse consistent with normal right atrial pressure. Pulmonary Artery: Normal pulmonary artery size. Conclusions 1. Normal left ventricular systolic function, possible basal inferior wall hypokinesis. Normal left ventricular cavity size. Normal left ventricular wall thickness. Ejection fraction is visually estimated at 60 %. Tissue Doppler/Mitral Doppler indices are within normal limits. 2. Normal appearance of the mitral valve. Mild mitral valve regurgitation. 3. Normal trileaflet aortic valve structure. No hemodynamically significant aortic stenosis by doppler. Trace aortic valve regurgitation. 4. Normal appearance of the tricuspid valve. Estimated peak PA systolic pressure 13 mmHg. There is trace tricuspid regurgitation. Electronically Signed By: Shelly Cameron 26-Sep-2016 11:59:38 -0800 GIORGIO LUZ Sep 27, 2016 09:26
[2016-09-27] MEDS: ATORVASTATIN 80 MG TAB PO SCH (21:20)
[2016-09-28] VITALS (23 sets, daily range): BP systolic 71–141; BP diastolic 33–83; PULSE 56–76; RESP 12–25
[2016-09-28] MEDS: LORAZEPAM 2 MG INJ IV PRN (04:45)
[2016-09-28 05:43] LABS: ALBUMIN 3.4 g/dl (3.3-4.9)
[2016-09-28 05:44] LABS: POTASSIUM 3.9 mmol/L (3.5-5.1)
[2016-09-28 05:45] LABS: CREATININE 0.9 mg/dl (0.61-1.24)
[2016-09-28 05:46] LABS: ALBUMIN/GLOBULIN RATIO 1.21; BILIRUBIN,INDIRECT 0.3 mg/dl (0-1.1); BILIRUBIN,TOTAL 0.3 mg/dl (0.2-1.3); TOTAL PROTEIN 6.2 g/dl (6.1-8.1)
[2016-09-28 05:47] LABS: CALCIUM 8.7 mg/dl (8.4-10.2); MAGNESIUM 1.9 mg/dl (1.7-2.5)
[2016-09-28 05:50] LABS: INR 1.05; PROTIME 13.7 Sec (12.2-14.2); PT RATIO 1.1
[2016-09-28 05:55] LABS: BASOPHILS % 0.4 % (0.0-2.0); EOSINOPHILS # 0.1 10^3/ul (0.0-0.5); EOSINOPHILS % 1.3 % (0.0-7.0); HEMATOCRIT 41.4 % (42.0-52.0); HEMOGLOBIN 14.2 g/dl (14.0-18.0); LYMPHOCYTES # 1.9 10^3/ul (0.8-2.9); LYMPHOCYTES % 27.7 % (15.0-51.0); MEAN CORPUSCULAR HEMOGLOBIN 31.9 pg (29.0-33.0); MEAN CORPUSCULAR HGB CONC 34.4 g/dl (32.0-37.0); MEAN CORPUSCULAR VOLUME 92.7 fl (82.0-101.0); MEAN PLATELET VOLUME 8.4 fl (7.4-10.4); MONOCYTE # 0.6 10^3/ul (0.3-0.9); MONOCYTES % 8.8 % (0.0-11.0); NEUTROPHIL # 4.2 10^3/ul (1.6-7.5); NEUTROPHILS % 61.8 % (39.0-77.0); PLATELET COUNT 160 10^3/UL (140-440); RED BLOOD COUNT 4.46 10^6/ul (4.70-6.10); RED CELL DISTRIBUTION WIDTH 12.9 % (11.5-14.5); UNCORRECTED WBC 6.7 10^3/ul (4.8-10.8); WHITE BLOOD COUNT 6.7 10^3/ul (4.8-10.8)
[2016-09-28 06:00] LABS: CONDITION 1
[2016-09-28 06:23] LABS: CK-MB 2.84 ng/ml (0.0-2.4); TROPONIN-I 4.36 ng/ml (0.00-0.12)
[2016-09-28] MEDS: SOD CHLORIDE 0.9% 1,000 ML IV SCH ×2 (07:00→13:17)
--- NOTE | 2016-09-28 07:46 | PN ---
DATE: 09/27/2016 SUBJECTIVE: Discussed with the staff, discussed with the patient and the girlfriend. The patient r emains chest pain free. No palpitation. His back pain has improved. No groin pain, no bleeding. MEDICATIONS: Reviewed as per medication reconciliation sheet, personally reviewed. PHYSICAL EXAMINATION: VITAL SIGNS: Temperature 98.3, heart rate of 66, blood pressure of 113/83, respiratory rate of 18, saturating 98%. HEENT: Normocephalic, atraumatic. No acute distress. Pupils are equal and round. CARDIOVASCULAR: Regular rate and rhythm. Systolic murmur. PULMONARY: No wheezes or rales. GASTROINTESTINAL: Soft, nontender. EXTREMITIES: No significant lower extremity edema. NEUROLOGIC: Awake, alert, oriented x3. Nonfocal. VASCULAR: ____ no tenderness to palpation. No bruit, no hematoma. LABORATORY: WBC 4.9, hemoglobin 14.2, platelets of 157. Sodium 140, potassium is 4.0, BUN of 14, c reatinine 0.85, glucose of 82. ASSESSMENT AND PLAN: 1. Non-ST elevation myocardial infarction. 2. Status post percutaneous coronary intervention of right coronary artery. 3. Multivessel coronary artery disease ____ left anterior descending disease. 4. Dyslipidemia. 5. History of benign prostatic hypertrophy. RECOMMENDATIONS: Will continue with the current cardiac care. Plan for coronary angiography and PC I of the LAD tomorrow. ____ discussed with the patient in detail, impressed on his girlfriend. Thi s included, not limited to infection, vascular complication, bleeding complication, [place], stroke, arrh ythmia, , renal failure, etc., discussed with the patient. It was explained to the patient joseph t the LAD is at the site of the diagonal, and there is a good possibility of ____ diagonal as well. The patient consented to procedure. Will schedule the procedure for tomorrow morning. Multiple qu estions including his questions and his girlfriend's questions were answered as well. Dictated By: SHELLY ESTRADA MD AV/DORENE Conf#: [id number] DID#: [id number] CC: GIORGIO LUZ MD;*EndCC*
[2016-09-28] MEDS: METOPROLOL 25 MG TAB PO SCH ×3 (09:02→20:09)
[2016-09-28] MEDS: ASPIRIN (EC) 81 MG TAB PO SCH (09:02)
[2016-09-28] MEDS: CLOPIDOGREL 75 MG TAB PO SCH (09:02)
[2016-09-28] MEDS: FINASTERIDE 5 MG TAB PO SCH (09:02)
[2016-09-28] MEDS: FAMOTIDINE 20 MG INJ IV SCH (09:02)
[2016-09-28] MEDS: morphine 2 MG INJ IV PRN (09:30)
--- NOTE | 2016-09-28 09:33 | PN ---
Date/Time of Note Date/Time of Note DATE: 09/28/16 TIME: 09:31 Assessment/Plan VTE Prophylaxis VTE Prophylaxis Intervention: SCD's Lines/Catheters IV Catheter Type (from Rust): Saline Lock Urinary Cath still in place: No Assessment/Plan Assessment/Plan A 66-year-old male with chest pain and shortness of breath, signs of non-ST elevation myocardial infarction and leukocytosis: 1. NST elevation myocardial infarction s/p Left heart catheterization 09/26/15. with Thrombectomy of the right coronary artery / PTCA stenting of the proximal and mid right coronary artery Patient still has residual LAD disease and is planned for PCI of the LAD today if no complications Patient is optimized on statin / BB / ASA/ Plavix 2. BPH: On home Proscar. Gastrointestinal prophylaxis, Pepcid. Deep venous thrombosis prophylaxis: SCDs Subjective 24 Hr Interval Summary Free Text/Dictation Patient seen and examined. Nursing reports no acute overnight events. planned for repeat heart cath today no new complaints Exam/Review of Systems Vital Signs Vitals Vital Signs Date Time Temp Pulse Resp B/P Pulse Ox O2 Delivery O2 Flow Rate FiO2 09/28/16 08:00 98.4 64 17 126/74 97 Room Air 09/26/16 14:00 2.0 Intake and Output 09/27/16 09/27/16 09/28/16 15:00 23:00 07:00 Intake Total 1100 ml 800 ml 900 ml Output Total 850 ml 2000 ml 950 ml Balance 250 ml -1200 ml -50 ml Exam Constitutional: alert, oriented Psych: nl mood/affect Head: atraumatic, normocephalic Eyes: PERRL ENMT: mucosa pink and moist Neck: non-tender, supple Respiratory: clear to auscultation, normal air movement Cardiovascular: nl pulses, regular rate and rhythm Gastrointestinal: bowel sounds, non-tender, soft Extremities: No edema Neurological: nl mental status, nl speech, nl strength Skin: No rash or lesions Results Result Diagram: 09/28/16 0400 09/28/16 0430 Results 24 hrs Laboratory Tests Test 09/28/16 04:00 09/28/16 04:30 Basophils # 0.0 Basophils % 0.4 Eosinophils # 0.1 Eosinophils % 1.3 Hematocrit 41.4 L Hemoglobin 14.2 Lymphocytes # 1.9 Lymphocytes % 27.7 Mean Corpuscular Hemoglobin 31.9 Mean Corpuscular Hemoglobin Concent 34.4 Mean Corpuscular Volume 92.7 Mean Platelet Volume 8.4 Monocytes # 0.6 Monocytes % 8.8 Neutrophils # 4.2 Neutrophils % 61.8 Nucleated Red Blood Cells # 0.0 Nucleated Red Blood Cells % 0.0 Platelet Count 160 Red Blood Count 4.46 L Red Cell Distribution Width 12.9 White Blood Count 6.7 # Alanine Aminotransferase (ALT/SGPT) 27 Albumin 3.4 Albumin/Globulin Ratio 1.21 Alkaline Phosphatase 58 Anion Gap 13 Aspartate Amino Transf (AST/SGOT) 40 Blood Urea Nitrogen 16 Calcium Level 8.7 Carbon Dioxide Level 26 Chloride Level 105 Creatine Kinase 65 Creatine Kinase Index 4.4 Creatinine 0.90 Creatinine Kinase MB (Mass) 2.84 H Direct Bilirubin 0.00 Globulin 2.80 Glucose Level 94 INR International Normalized Ratio 1.05 Indirect Bilirubin 0.3 Magnesium Level 1.9 Potassium Level 3.9 Prothrombin Time 13.7 Prothrombin Time Ratio 1.1 Sodium Level 140 Total Bilirubin 0.3 Total Protein 6.2 Troponin I 4.360 *H Medications Medications Current Medications Ondansetron HCl (Zofran Inj) 4 mg Q6H PRN IV NAUSEA AND/OR VOMITING; Start at 17:30 Acetaminophen (Tylenol Tab) 650 mg Q6H PRN PO PAIN LEVEL 1-3 OR FEVER; Start at 17:30 Acetaminophen/ Hydrocodone Bitart ([place] (5/325)) 1 tab Q6H PRN PO MODERATE PAIN LEVEL 4-6 Last administered on 09/26/16t 20:51; Admin Dose 1 TAB; Start at 17:30 Morphine Sulfate (morphine) 2 mg Q4H PRN IV SEVERE PAIN LEVEL 7-10 Last administered on 09/28/16 09:30; Admin Dose 2 MG; Start 09/25/16 at 17:30 Docusate Sodium (Colace) 100 mg Q12H PRN PO CONSTIPATION; Start 09/25/16 at 17: 30 Magnesium Hydroxide (Milk Of Mag) 30 ml DAILY PRN PO CONSTIPATION; Start at 17:30 Sodium Biphosphate/ Sodium Phosphate (Fleet Enema) 133 ml DAILY PRN [place] CONSTIPATION; Start 09/25/16 at 17:30 Famotidine (Pepcid Iv) 20 mg DAILY IV Last administered on 09/28/16 09:02; Admin Dose 20 MG; Start 09/25/16 at 17:30 Lorazepam (Ativan) 0.5 mg Q6H PRN IV ANXIETY Last administered on 09/28/16 04: 45; Admin Dose 0.5 MG; Start 09/25/16 at 17:30 Hydralazine HCl (Apresoline) 10 mg Q6H PRN IV ELEVATED BLOOD PRESSURE; Start at 17:30 Clonidine (Catapres) 0.1 mg Q6H PRN PO ELEVATED BLOOD PRESSURE; Start 09/25/16 at 17:30 Nitroglycerin (Nitroglycerin (Sl Tab) 0.4 Mg) 1 tab Q5M PRN SL ANGINA; Start at 17:30 Finasteride (Proscar) 5 mg DAILY PO Last administered on 09/28/16 09:02; Admin Dose 5 MG; Start 09/26/16 at 09:00 Metoprolol Tartrate (Lopressor) 25 mg BID PO Last administered on 09/28/16 09: 25; Admin Dose 25 MG; Start 09/25/16 at 21:00 Atorvastatin Calcium (Lipitor) 80 mg HS PO Last administered on 09/27/16 21:20 ; Admin Dose 80 MG; Start 09/25/16 at 21:00 Clopidogrel Bisulfate 75 mg 75 mg DAILY PO Last administered on 09/28/16 09:02 ; Admin Dose 75 MG; Start 09/27/16 at 09:00 Sodium Chloride (NS) 1,000 ml @ 100 mls/hr Q10H IV Last administered on 21:21; Admin Dose 100 MLS/HR; Start 09/26/16 at 23:30 Aspirin (Halfprin) 81 mg DAILY PO Last administered on 09/28/16 09:02; Admin Dose 81 MG; Start 09/27/16 at 09:00 GIORGIO LUZ Sep 28, 2016 09:33
[2016-09-28] MEDS ORDERED: IODIXANOL LOCM 100 ML BTL ONE ×2 (10:34→11:49)
[2016-09-28] MEDS ORDERED: LIDOCAINE 1% (MDV) 20 ML INJ ONE (10:34)
[2016-09-28] MEDS ORDERED: FENTAnyl 50 MCG/ML VIAL ONE (10:35)
[2016-09-28] MEDS ORDERED: MIDAZOLAM 1 MG/ML 2 ML INJ ONE (10:35)
[2016-09-28] MEDS ORDERED: VERAPAMIL 5 MG INJ ONE (10:36)
[2016-09-28] MEDS ORDERED: NITROGLYCERIN (IC) 100 MCG/ML INJ ONE (10:36)
[2016-09-28] MEDS ORDERED: IODIXANOL LOCM 50 ML BTL ONE (10:45)
[2016-09-28] MEDS ORDERED: BIVALIRUDIN 250MG /NS 50 ML 50 ML IVPB ONE (11:34)
--- NOTE | 2016-09-28 13:08 | SP ---
DATE OF PROCEDURE: 09/28/2016 NAME OF PROCEDURE: 1. Selective left coronary angiography. 2. Successful percutaneous transluminal coronary angioplasty and stenting of the mid left anterior descending. 3. Successful angioplasty of the diagonal. SURGEON: Shelly Cameron MD CLINICAL INDICATIONS: This is a 66-year-old gentleman who presented with [id number]-[id number] myocardia l infarction. The patient underwent PCI of the right coronary artery successfully. Was brought in for the staged procedure of the LAD. DESCRIPTION OF PROCEDURE: Written informed consent was obtained. The risks and benefits were discu ssed with the patient was placed in the supine position upon right groin area was anes thetized with . A 5-Kazakh sheath was placed in right femoral artery. Right femoral angiogram was performed. Perclose was applied and pre-close was done. Then, I changed the sheath to a 7-Brian nch sheath. A 7-Kazakh XB3 guide was advanced and engaged in the left main coronary artery. BMW wi re used and advanced into the diagonal to protect the diagonal vessel. Another BMW wire across the LAD. A 2.5 x 15 mm balloon was placed across the LAD and inflated multiple times. Angiogram was ob tained. Then, I used a 3.0 x 30 mm Resolute drug-eluting stent which was placed across the LAD and deployed it at 16 atmospheres. Angiogram was obtained. It appeared that the diagonal ostium was ja iled as expected. Another BMW wire used to cross into the diagonal through the struts of stents. A 2.25 x 8 mm noncompliant balloon was placed across the ostium of the diagonal, inflated. Finally, a 2.5 x 15 mm noncompliant balloon was placed within the LAD stent and post dilated up to 16 atmosph eres. Final angiogram was obtained which showed ISAEBLL 3 flow, no evidence of dissection, no signific ant inside the LAD. Diagonal also had about less than 50% stenosis with ISABELL 3 flow. Cathet er and Glidewire were removed. Sheath was removed and a Perclose was applied. Patient tolerated th e procedure without complication. Patient transferred to recovery in stable condition. IMMEDIATE COMPLICATIONS: None. CONCLUSION: Successful PTCA and stenting of the LAD and angioplasty of the diagonal. RECOMMENDATIONS: Aggressive medical therapy. ICU overnight observation. Dictated By: SHELLY RUIZ/NTS Conf#: [id number] DID#: [id number] CC: AMRIK HACKETT;*EndCC*
[2016-09-28] MEDS: ATORVASTATIN 80 MG TAB PO SCH (20:09)
[2016-09-28] MEDS: HYDROCODONE/APAP (5/325) TAB PO PRN (22:04)
[2016-09-29] VITALS (10 sets, daily range): BP systolic 88–116; BP diastolic 63–78; PULSE 55–74; RESP 12–16
[2016-09-29] MEDS: SOD CHLORIDE 0.9% 1,000 ML IV SCH ×2 (00:52→11:30)
[2016-09-29 05:43] LABS: BASOPHILS % 0.1 % (0.0-2.0); EOSINOPHILS # 0.1 10^3/ul (0.0-0.5); EOSINOPHILS % 1.6 % (0.0-7.0); HEMATOCRIT 42.4 % (42.0-52.0); HEMOGLOBIN 14.4 g/dl (14.0-18.0); LYMPHOCYTES % 29.7 % (15.0-51.0); MEAN CORPUSCULAR HEMOGLOBIN 31.9 pg (29.0-33.0); MEAN CORPUSCULAR HGB CONC 33.9 g/dl (32.0-37.0); MEAN CORPUSCULAR VOLUME 94.2 fl (82.0-101.0); MEAN PLATELET VOLUME 8.3 fl (7.4-10.4); MONOCYTE # 0.5 10^3/ul (0.3-0.9); MONOCYTES % 7.3 % (0.0-11.0); NEUTROPHIL # 4.2 10^3/ul (1.6-7.5); NEUTROPHILS % 61.3 % (39.0-77.0); PLATELET COUNT 166 10^3/UL (140-440); RED BLOOD COUNT 4.51 10^6/ul (4.70-6.10); RED CELL DISTRIBUTION WIDTH 13.1 % (11.5-14.5); UNCORRECTED WBC 6.9 10^3/ul (4.8-10.8); WHITE BLOOD COUNT 6.9 10^3/ul (4.8-10.8)
[2016-09-29 05:52] LABS: CONDITION 1
[2016-09-29 06:04] LABS: POTASSIUM 4.1 mmol/L (3.5-5.1)
[2016-09-29 06:06] LABS: CREATININE 0.9 mg/dl (0.61-1.24)
[2016-09-29] MEDS: HYDROCODONE/APAP (5/325) TAB PO PRN (08:17)
[2016-09-29] MEDS: FINASTERIDE 5 MG TAB PO SCH (08:17)
[2016-09-29] MEDS: ASPIRIN (EC) 81 MG TAB PO SCH (08:17)
[2016-09-29] MEDS: CLOPIDOGREL 75 MG TAB PO SCH (08:17)
[2016-09-29] MEDS: FAMOTIDINE 20 MG INJ IV SCH (08:17)
[2016-09-29] MEDS: METOPROLOL 25 MG TAB PO SCH (08:19)
--- NOTE | 2016-09-29 08:49 | PN ---
Date/Time of Note Date/Time of Note DATE: 09/29/16 TIME: 08:47 Assessment/Plan VTE Prophylaxis VTE Prophylaxis Intervention: SCD's Lines/Catheters IV Catheter Type (from Rust): Saline Lock Urinary Cath still in place: No Assessment/Plan Assessment/Plan A 66-year-old male with chest pain and shortness of breath, signs of non-ST elevation myocardial infarction and leukocytosis: 1. NST elevation myocardial infarction s/p Left heart catheterization 09/26/15. with Thrombectomy of the right coronary artery / PTCA stenting of the proximal and mid right coronary artery and stenting of the LAD and angioplasty of the diagonal 09/28/15 Patient is optimized on statin / BB / ASA/ Plavix 2. BPH: On home Proscar. Gastrointestinal prophylaxis, Pepcid. Deep venous thrombosis prophylaxis: SCDs Dispo: Tele versus discharge depending on cardiology Continue supportive care Subjective 24 Hr Interval Summary Free Text/Dictation Patient seen and examined. Exam/Review of Systems Vital Signs Vitals Vital Signs Date Time Temp Pulse Resp B/P Pulse Ox O2 Delivery O2 Flow Rate FiO2 09/29/16 05:00 58 15 102/63 96 Room Air 09/29/16 04:00 97.4 09/26/16 14:00 2.0 Intake and Output 09/28/16 09/28/16 09/29/16 15:00 23:00 07:00 Intake Total 940 ml 700 ml Output Total 800 ml 900 ml 850 ml Balance 140 ml -200 ml -850 ml Exam Constitutional: alert, oriented Psych: nl mood/affect Head: atraumatic, normocephalic Eyes: PERRL ENMT: mucosa pink and moist Neck: non-tender, supple Respiratory: clear to auscultation, normal air movement Cardiovascular: nl pulses, regular rate and rhythm Gastrointestinal: bowel sounds, non-tender, soft Extremities: No edema Neurological: nl mental status, nl speech, nl strength Skin: No rash or lesions Results Result Diagram: 09/29/16 0500 09/29/16 0500 Results 24 hrs Laboratory Tests Test 09/29/16 05:00 Anion Gap 14 Basophils # 0.0 Basophils % 0.1 Blood Urea Nitrogen 14 Calcium Level 9.0 Carbon Dioxide Level 28 Chloride Level 102 Creatinine 0.90 Eosinophils # 0.1 Eosinophils % 1.6 Glucose Level 97 Hematocrit 42.4 Hemoglobin 14.4 Lymphocytes # 2.0 Lymphocytes % 29.7 Mean Corpuscular Hemoglobin 31.9 Mean Corpuscular Hemoglobin Concent 33.9 Mean Corpuscular Volume 94.2 Mean Platelet Volume 8.3 Monocytes # 0.5 Monocytes % 7.3 Neutrophils # 4.2 Neutrophils % 61.3 Nucleated Red Blood Cells # 0.0 Nucleated Red Blood Cells % 0.0 Platelet Count 166 Potassium Level 4.1 Red Blood Count 4.51 L Red Cell Distribution Width 13.1 Sodium Level 140 White Blood Count 6.9 Medications Medications Current Medications Ondansetron HCl (Zofran Inj) 4 mg Q6H PRN IV NAUSEA AND/OR VOMITING; Start at 17:30 Acetaminophen (Tylenol Tab) 650 mg Q6H PRN PO PAIN LEVEL 1-3 OR FEVER; Start at 17:30 Acetaminophen/ Hydrocodone Bitart ([place] (5/325)) 1 tab Q6H PRN PO MODERATE PAIN LEVEL 4-6 Last administered on 09/29/16 08:17; Admin Dose 1 TAB; Start at 17:30 Morphine Sulfate (morphine) 2 mg Q4H PRN IV SEVERE PAIN LEVEL 7-10 Last administered on 09/28/16 09:30; Admin Dose 2 MG; Start 09/25/16 at 17:30 Docusate Sodium (Colace) 100 mg Q12H PRN PO CONSTIPATION; Start 09/25/16 at 17: 30 Magnesium Hydroxide (Milk Of Mag) 30 ml DAILY PRN PO CONSTIPATION; Start at 17:30 Sodium Biphosphate/ Sodium Phosphate (Fleet Enema) 133 ml DAILY PRN [place] CONSTIPATION; Start 09/25/16 at 17:30 Famotidine (Pepcid Iv) 20 mg DAILY IV Last administered on 09/29/16 08:17; Admin Dose 20 MG; Start 09/25/16 at 17:30 Lorazepam (Ativan) 0.5 mg Q6H PRN IV ANXIETY Last administered on 09/28/16 04: 45; Admin Dose 0.5 MG; Start 09/25/16 at 17:30 Hydralazine HCl (Apresoline) 10 mg Q6H PRN IV ELEVATED BLOOD PRESSURE; Start at 17:30 Clonidine (Catapres) 0.1 mg Q6H PRN PO ELEVATED BLOOD PRESSURE; Start 09/25/16 at 17:30 Nitroglycerin (Nitroglycerin (Sl Tab) 0.4 Mg) 1 tab Q5M PRN SL ANGINA; Start at 17:30 Finasteride (Proscar) 5 mg DAILY PO Last administered on 09/29/16 08:17; Admin Dose 5 MG; Start 09/26/16 at 09:00 Metoprolol Tartrate (Lopressor) 25 mg BID PO Last administered on 09/28/16 20: 09; Admin Dose 25 MG; Start 09/25/16 at 21:00 Atorvastatin Calcium (Lipitor) 80 mg HS PO Last administered on 09/28/16 20:09 ; Admin Dose 80 MG; Start 09/25/16 at 21:00 Clopidogrel Bisulfate 75 mg 75 mg DAILY PO Last administered on 09/29/16 08:17 ; Admin Dose 75 MG; Start 09/27/16 at 09:00 Sodium Chloride (NS) 1,000 ml @ 100 mls/hr Q10H IV Last administered on 13:17; Admin Dose 100 MLS/HR; Start 09/26/16 at 23:30 Aspirin (Halfprin) 81 mg DAILY PO Last administered on 09/29/16 08:17; Admin Dose 81 MG; Start 09/27/16 at 09:00 GIORGIO LUZ Sep 29, 2016 08:49
--- NOTE | 2016-09-29 09:14 | PN ---
DATE: 09/28/2016 CARDIOLOGY FOLLOWUP SUBJECTIVE: The patient with no chest pain overnight. No palpitation. Denies dyspnea or orthopnea . MEDICATIONS: Reviewed. PHYSICAL EXAMINATION: VITAL SIGNS: Temperature 98.4, heart rate of 67, blood pressure 117/76, respiration rate of 16, sat urating 96%. HEENT: Normocephalic, atraumatic. Pupils are equal. CARDIOVASCULAR: Regular rate and rhythm, systolic murmur. PULMONARY: With no wheezes, no rhonchi. GASTROINTESTINAL: Soft, nontender. EXTREMITIES: No significant edema. VASCULAR: Right femoral with mild ecchymosis, no hematoma. NEUROLOGIC: Awake and alert. PSYCHIATRIC: Calm, pleasant. LABORATORY: WBC of 6.7, hemoglobin 14.2, platelets of 160. Sodium 140, potassium 3.9, BUN of 16, c reatinine 0.9, glucose 91. ASSESSMENT AND PLAN: 1. Non-ST elevation myocardial infarction. Status post percutaneous coronary intervention of right coronary artery. 2. Dyslipidemia. 3. Hypertension. RECOMMENDATIONS: We will continue with the current cardiac care. Plan for left heart catheterizati on, coronary angio, possible percutaneous coronary intervention today. Dictated By: SHELLY RUIZ/DORENE Conf#: [id number] DID#: [id number]
--- NOTE | 2016-09-29 10:04 | PN ---
DATE: 09/29/2016 CARDIOLOGY FOLLOWUP SUBJECTIVE: Discussed with the staff. Rhythm strip was reviewed. The patient in sinus rhythm, sin us jose ramon. No chest pain, no palpitation. No groin pain. He has been able to walk. Wants to go ho me. MEDICATIONS: Reviewed. PHYSICAL EXAMINATION: VITAL SIGNS: Temperature 97.4, heart rate of 58, blood pressure 102/63, respiration rate 15. HEENT: Normocephalic, atraumatic. Pupils equal and round. CARDIOVASCULAR: Regular rate and rhythm. PULMONARY: With no wheezes or rhonchi. GASTROINTESTINAL: Soft, nontender. No rebound or guarding. EXTREMITIES: With no significant lower extremity edema. NEUROLOGIC: Awake, alert x3. VASCULAR: Right femoral with no bleeding, no hematoma. ASSESSMENT/PLAN: 1. Non-ST elevation myocardial infarction. 2. Status post percutaneous coronary intervention of the right coronary artery, left anterior desce nding and diagonal. 3. Dyslipidemia. 4. Hypertension. 5. Smoker. RECOMMENDATIONS: We will continue with the current cardiac care including aspirin and Plavix. Beta aria will be continued. Discharge planning for today. Patient advised to follow up with me in 2 weeks. Dictated By: SHELLY ESTRADA MD AV/DORENE Conf#: [id number] DID#: [id number] CC: GIORGIO LUZ MD;*EndCC*
[2016-09-29] MEDS ORDERED: ATOR80TA75 PO (10:28)
[2016-09-29] MEDS ORDERED: CLOP75TA28 PO (10:28)
[2016-09-29] MEDS ORDERED: ASPI-664 PO (10:28)
[2016-09-29] MEDS ORDERED: METO-448 PO (10:28)
--- NOTE | 2016-09-29 10:34 | PDOCDIS ---
Discharge Instructions DIAGNOSIS Discharge Diagnosis: Myocardial Infarction CONDITION Patient Condition: Stable HOME CARE INSTRUCTIONS: Special Diet: cardiac diet ACTIVITY: Activity Restrictions: Slowly Increase Activity Rest between Activity FOLLOW UP/APPOINTMENTS Appointments Followup with your primary doctor within the next 1-2 weeks. If you don't have one please let someone know, we can give you resources that may help you pick one. You may also call your insurance company to assign one to you. Review your medication list with your nurse before leaving and if you need new prescriptions please let your nurse know. I may have made changes to your home medications or given you new prescriptions , please let your primary doctor know as well. Stay compliant with your medications and report any side effects to your PCP or pharmacist. Return to the ER if you have any concerns and cannot reach your doctors or call your insurance company, they usually have a nurse that can help you. OTHER ORDERS: Other Orders: Followup with your primary doctor within the next 1-2 weeks. If you don't have one please let someone know, we can give you resources that may help you pick one. You may also call your insurance company to assign one to you. Review your medication list with your nurse before leaving and if you need new prescriptions please let your nurse know. I may have made changes to your home medications or given you new prescriptions , please let your primary doctor know as well. Stay compliant with your medications and report any side effects to your PCP or pharmacist. Return to the ER if you have any concerns and cannot reach your doctors or call your insurance company, they usually have a nurse that can help you. GIORGIO LUZ. Sep 29, 2016 10:34
[2016-09-29] MEDS ORDERED: METO25TA7 PO (10:53)
[2016-09-29] MEDS ORDERED: NITR0.4T6 SL (10:53)
--- NOTE | 2016-09-29 14:46 | RADRPT ---
Vent Rate: 53 bpm RR Interval: 0 msec RI Interval: 218 msec QRS Duration: 92 msec QT Interval: 436 msec QTC Interval: 409 msec P-R-T [place]: 77 - -19 - -38 degrees Sinus bradycardia with 1st degree AV block Inferior infarct , age undetermined Abnormal ECG Electronically Signed By: Bj Darby [id number]
--- NOTE | 2016-09-30 12:52 | DS ---
DATE OF ADMISSION: 09/25/2016 DATE OF DISCHARGE: 09/29/2016 PRESENTING COMPLAINT: Chest pain, shortness of breath. ADMISSION DIAGNOSES: 1. Non-ST elevation myocardial infarction. 2. Leukocytosis. 3. Possible prostate issues. CONSULTS ON THE CASE: Familia Cameron MD. INTERVENTIONS: 1. Chest x-ray showed no evidence of acute cardiopulmonary disease, 09/25/2016. 2. Abdominal pelvic CT done 09/26/2016 showed multiple incidental findings summarized as follows: Mild atelectasis in the lung bases posteriorly, coronary artery calcification, stent in proximal rig ht coronary artery, gallstones, sludge or contrast present in the gallbladder without evidence of ch olecystitis, benign bilateral renal cysts, enlarged prostate, colon diverticulosis without diverticu litis, spine degenerative changes and benign sclerotic lesion in left iliac bone. 3. The patient also underwent left heart catheterization twice. The first 09/26/2016 and he had a successful PTCA stenting of the proximal and mid right coronary artery from subtotal lesion with a l arge amount of intraluminal thrombus, without significant residual stenosis using 2.5 x 38 mm Promus drug-eluting stent. This was done 09/26/2016. He was returned to the photo lab specialist on 09/28/2016 when he had selective left coronary angiography and he had stenting of the mid left anterior descending a nd angioplasty of the diagonal. HOSPITALIZATION COURSE: Full details are available in the chart for review. In summary, this patie nt presented with chest pain, was found to have a non-ST elevation myocardial infarction. He was ag gressively managed and he underwent 2 left heart catheterizations, and findings are summarized above . He had 2 different stents placed in addition to a previous stent he had in his right coronary art sobia. His comorbidities were also aggressively managed and the patient spent most of his hospitaliza tion course in the intensive care unit being closely observed. FINAL DIAGNOSES: 1. Non-ST elevation myocardial infarction with diffuse coronary artery disease, status post stentin g and angioplasty details as above. The patient had 1 previous stent and had 2 new stents placed on this admission. 2. Benign prostatic hypertrophy, stable on home Flomax. 3. Leukocytosis, reactive. 4. History of depression, stable, on no previous meds. DISPOSITION: To home. FINAL MEDICATIONS: 1. Aspirin 81 p.o. daily for life. 2. Lipitor 80 mg p.o. at bedtime. 3. Plavix 75 mg p.o. daily for at least 1 year. 4. Toprol-XL 12.5 mg p.o. daily. 5. Nitroglycerin 0.4 mg sublingual every 5 minutes p.r.n. chest pain. 6. 5 mg p.o. daily. ACTIVITIES: As tolerated. RECOMMENDED DIET: Low cholesterol, low fat. FOLLOWUP: The patient has scheduled followup with Dr. Familia Cameron in his office next Tuesday. This was all explained to the patient in detail. Questions have been answered. We reviewed the pat ient's medications. I also spoke with the patient's over the telephone. The patient was revie wed twice today, first for a regular exam and second after he had been cleared for discharge. Physi kaz examination remains benign. Overall time spent on discharge planning was about 50 minutes. Dictated By: GIORGIO LUZ MD, BA/DORENE Conf#: [id number] DID#: [id number]
== END 2016-09-29 12:25 | disposition home or self-care (01) | DRG 247 ==
LOC: E/R 12:27 → MS4 16:08 → ICU 09-26 13:30
PROVIDERS: ADMIT Hospitalist; ATTEND Hospitalist
PROC: 4A023N7 Measurement of Cardiac Sampling and Pressure, Left Heart, Percutaneous Approach (ICD-10-PCS; 2016-09-26)
PROC: B2111ZZ Fluoroscopy of Multiple Coronary Arteries using Low Osmolar Contrast (ICD-10-PCS; 2016-09-26)
PROC: 027034Z Dilation of Coronary Artery, One Artery with Drug-eluting Intraluminal Device, Percutaneous Approach (ICD-10-PCS; principal; 2016-09-26 12:30)
PROC: 02C03ZZ Extirpation of Matter from Coronary Artery, One Artery, Percutaneous Approach (ICD-10-PCS; 2016-09-26 12:30)
DX: I21.4 Non-ST elevation (NSTEMI) myocardial infarction (principal); I10 Essential (primary) hypertension; E78.5 Hyperlipidemia, unspecified; N40.0 Benign prostatic hyperplasia without lower urinary tract symptoms; I25.10 Atherosclerotic heart disease of native coronary artery without angina pectoris; F17.200 Nicotine dependence, unspecified, uncomplicated; Z79.82 Long term (current) use of aspirin
CPT/HCPCS: 36415; 71010; 74176; 80048; 80053; 80061; 81003; 82550; 82553; 83036; 83735; 83880; 84100; 84439; 84443; 84484; 85025; 85610; 85730; 87081; 87086; 93005; 93306; 93454; 93458; 96374; 96375; C1725; C1760; C1769; C1874; C1887; C1894; C9600; J0583; J1644; J2060; J2250; J2270; J3010; J7030; J7040; Q9967